=== PATIENT | male | born 1955 | race Hispanic/Latino ===

== ENCOUNTER 2016-04-26 06:36 | Day surgery (SDC) | payer BC ==
[2016-04-26] MEDS ORDERED: Lactated Ringer's 500 ML IV ONE ×2 (08:53)
[2016-04-26] MEDS ORDERED: Propofol 10 mg/ml Inj (20 ML) ONE ×2 (08:55→09:13)
[2016-04-26] MEDS ORDERED: Lactated Ringer's 1,000 ML IV SCH (09:00)
[2016-04-26] MEDS ORDERED: Simethicone 40 mg/0.6 ml Liquid (30 ml) ONE (09:29)
[2016-04-26 10:16] VITALS: TEMP 97.1
[2016-04-26 10:32] VITALS: RESP 15; O2SAT 100
[2016-04-26 11:15] VITALS: BP 128/76; PULSE 61
== END 2016-04-26 11:16 | disposition home or self-care (01) ==
LOC: C.ENDO 06:36
PROVIDERS: ATTEND Internal Medicine Gastroenterology
DX: I85.00 Esophageal varices without bleeding (principal); Z12.11 Encounter for screening for malignant neoplasm of colon; D12.0 Benign neoplasm of cecum; D12.3 Benign neoplasm of transverse colon
CPT/HCPCS: 43244; 45385; 82948; 88305; 88342; J2704; J3010; J7120

== ENCOUNTER 2016-06-08 06:12 | Day surgery (SDC) | payer SELFPAY ==
[2016-06-08 07:14] VITALS: RESP 19; TEMP 97; O2SAT 100
[2016-06-08] MEDS ORDERED: Simethicone 40 mg/0.6 ml Liquid (30 ml) ONE (07:46)
[2016-06-08] MEDS ORDERED: Propofol 10 mg/ml Inj (20 ML) ONE ×2 (07:57→08:10)
[2016-06-08] MEDS ORDERED: Lidocaine 2% Inj (20ml) ONE (07:57)
--- NOTE | 2016-06-08 07:59 | CP.SDSHP ---
Same Day Surgery H & P - History Proposed Procedure: EGD Pre-Op Diagnosis: variceal surveillance - Previous Medical/Surgical History Comments: cirrhosis - Allergies Allergies: Allergies No Known Allergies Allergy (Verified 04/26/16 07:17) - Physical Exam General Appearance: NAD Vital Signs: Vital Signs 06/08/16 06/08/16 06:45 07:42 Temperature 97 F L 97 F L Pulse Rate 67 67 Respiratory 19 19 Rate Blood Pressure 124/68 124/68 O2 Sat by Pulse 100 100 Oximetry Mental Status: Alert & Oriented x3 Neuro: WNL Heart: WNL Lungs: WNL GI: WNL - {Optional Preform as Required} Abdomen: WNL - Impression Pt. Evaluated Today:Candidate for Anesthesia & Procedure: Yes - Date & Time Date: 06/08/16 Time: 07:59 Short Stay Discharge - Short Stay Discharge Admitting Diagnosis/Reason for Visit: ESOPHAGEAL VARICES Disposition: HOME/ ROUTINE
[2016-06-08 09:17] VITALS: BP 123/64; PULSE 69
== END 2016-06-08 09:10 | disposition home or self-care (01) ==
LOC: C.ENDO 06:12
PROVIDERS: ATTEND Internal Medicine Gastroenterology
DX: I85.00 Esophageal varices without bleeding (principal); K29.70 Gastritis, unspecified, without bleeding
CPT/HCPCS: 36416; 43244; 82948; J2704

== ENCOUNTER 2016-08-31 06:06 | Day surgery (SDC) | payer BC ==
[2016-08-31 06:36] VITALS: BMI 34.2
[2016-08-31] MEDS ORDERED: Midazolam 2 MG/2 ML VIAL ONE (07:58)
[2016-08-31] MEDS ORDERED: Propofol 10 mg/ml Inj (20 ML) ONE (07:58)
[2016-08-31] MEDS ORDERED: Lactated Ringer's 1,000 ML IV ONE ×2 (08:00)
--- NOTE | 2016-08-31 08:12 | CP.SDSHP ---
Same Day Surgery H & P - History Proposed Procedure: EGD Pre-Op Diagnosis: variceal surveillance - Previous Medical/Surgical History Endocrine/Metabolic: Diabetes - Allergies Allergies: Allergies No Known Allergies Allergy (Verified 04/26/16 07:17) - Physical Exam General Appearance: NAD Vital Signs: Vital Signs 08/31/16 06:36 Temperature 97.8 F Pulse Rate 73 Respiratory 19 Rate Blood Pressure 138/86 O2 Sat by Pulse 100 Oximetry Mental Status: Alert & Oriented x3 Neuro: WNL Heart: WNL Lungs: WNL GI: WNL - {Optional Preform as Required} Abdomen: WNL - Impression Pt. Evaluated Today:Candidate for Anesthesia & Procedure: Yes - Date & Time Date: 08/31/16 Time: 08:12 Short Stay Discharge - Short Stay Discharge Admitting Diagnosis/Reason for Visit: ESOPHAGEAL VARICES Disposition: HOME/ ROUTINE
[2016-08-31 09:00] VITALS: TEMP 96.8
[2016-08-31 10:44] VITALS: BP 121/75; PULSE 66; RESP 18; O2SAT 98
== END 2016-08-31 09:50 | disposition home or self-care (01) ==
LOC: C.ENDO 06:06
PROVIDERS: ATTEND Internal Medicine Gastroenterology
DX: I85.00 Esophageal varices without bleeding (principal); K76.6 Portal hypertension; K31.89 Other diseases of stomach and duodenum
CPT/HCPCS: 43239; 82948; 88305; J2001; J2250; J2704; J7120